=== PATIENT | male | born 1985 | race Caucasian/White ===

== ENCOUNTER → 2024-06-08 | Emergency (ER) | payer OTHER ==
[~2024-06-08] VITALS: Ht 175.3 cm; Wt 81.6 kg
[~2024-06-08] MED LIST: TETANUS & DIPHTHERIA TOX,ADULT 0.5 ML VIAL IM STA
== END | disposition home or self-care (01) ==
LOC: ER 16:44
DX: S60.512A Abrasion of left hand, initial encounter (principal); W31.1XXA Contact with metalworking machines, initial encounter; Y93.9 Activity, unspecified; Y92.9 Unspecified place or not applicable; Y99.9 Unspecified external cause status